=== PATIENT | female | born 1945 | race African-American/Black ===

== ENCOUNTER 2016-08-07 11:06 | Outpatient (CLI) | payer MEDICARE | END 2016-08-07 11:07 | disposition home or self-care (01) | LOC: BURLAB 11:06 | PROVIDERS: ATTEND Otolaryngology Plastic Surgery within the Head & Neck | DX: E04.2 Nontoxic multinodular goiter (principal) | CPT/HCPCS: 36415; 84432; 84443; 86800 ==

== ENCOUNTER 2016-11-24 14:13 | Outpatient (CLI) | payer MEDICARE ==
[2016-11-24 14:54] LABS: ALT (SGPT) 21 U/L (8-55); AST (SGOT) 19 U/L (5-34); Albumin 4.5 g/dL (3.4-4.8); Alkaline Phosphatase 83 U/L (40-150); Anion Gap 13 mmol/L (10-20); BUN (Urea Nitrogen) 7 mg/dL (9.8-20.1); Calc. Creatinine Clearance 0 mL/min (70-130); Calcium 10.2 mg/dL (7.8-10.44); Carbon Dioxide 30 mmol/L (23-31); Cardiac Risk 2.9 (Less than 4.5); Chloride 104 mmol/L (98-107); Cholesterol 149 mg/dL (< 200 Desired); Estimated GFR-MDRD Greater than 90; Globulin 3.9 g/dL (2.4-3.5); Glucose 105 mg/dL (80-115); HDL Cholesterol 51 mg/dL (>60 Neg Risk); LDL Cholesterol, Calculated 63 mg/dL; Potassium 3.3 mmol/L (3.5-5.1); Protein, Total 8.4 g/dL (5.8-8.1); Sodium 144 mmol/L (136-145); Triglycerides 174 mg/dL (Less than 150)
== END 2016-11-24 14:14 | disposition home or self-care (01) ==
LOC: BURLAB 14:13
PROVIDERS: ATTEND Internal Medicine Nephrology
DX: E78.2 Mixed hyperlipidemia (principal); I10 Essential (primary) hypertension
CPT/HCPCS: 36415; 80053; 80061; 84443

== ENCOUNTER 2017-11-10 10:20 | Outpatient (CLI) | payer MEDICARE ==
--- NOTE | 2017-11-11 07:29 | ULT ---
THYROID ULTRASOUND: 11/10/17 Ultrasonography of the thyroid gland was compared with a 11/27/16 study. As on the prior study, the thyroid gland is markedly enlarged. The right lobe measures 7.2 x 3.5 x 3. 3 cm and the left lobe measures 6.2 x 3.2 x 2.3 cm. There are multiple nodules scattered throughout t he lobes bilaterally. The largest is in the inferior pole of the right lobe and measures 3.9 cm in le ngth which is identical to before. There are at least six other nodules in this lobe of varying sizes . An 8 mm nodule is seen in the isthmus. There are at least four nodules in the left lobe, the larges t seen inferiorly measuring 3.2 cm in length. Overall, the appearance of the thyroid gland is not markedly different than before in terms of the va rious nodules. The findings are consistent with a multinodular goiter. Unfortunately, ultrasound is n ot able to assess if any given nodule might be neoplastic or not. IMPRESSION: Similar findings to the 2017 study. Findings consistent with a multinodular goiter with minimal diffe rences over the interval. POS: HOME
== END 2017-11-10 10:21 | disposition home or self-care (01) ==
LOC: BURULT 10:20
PROVIDERS: ATTEND Otolaryngology Plastic Surgery within the Head & Neck
DX: E04.1 Nontoxic single thyroid nodule (principal)
CPT/HCPCS: 76536

== ENCOUNTER 2021-09-04 15:35 | Inpatient (IN) | payer MEDICARE, OTHER ==
[2021-09-04 17:35] VITALS: BMI 38.2
[2021-09-04] MEDS ORDERED: Albuterol Sulfate 2.5 mg/3 ml Neb NEB PRN ×2 (17:43→17:53)
[2021-09-04] MEDS: HYDROcodone/Acetaminophen 10/325 mg Tablet PO PRN (18:37)
[2021-09-04] MEDS: Pregabalin 75 MG CAP PO SCH (20:21)
[2021-09-04] MEDS: rOPINIRole HCl 0.25 MG TAB PO SCH (20:22)
[2021-09-04] MEDS: Aspirin 81 mg Enteric Coated Tablet PO SCH (20:23)
[2021-09-04] MEDS: Atorvastatin Calcium 10 MG TAB PO SCH (20:23)
[2021-09-04] MEDS: Estradiol 1 MG TAB PO SCH (20:29)
[2021-09-05] MEDS: HYDROcodone/Acetaminophen 10/325 mg Tablet PO PRN ×4 (01:18→17:47)
[2021-09-05] MEDS: Levothyroxine Sodium 50 MCG TAB PO SCH (05:04)
[2021-09-05] MEDS ORDERED: HumaLOG 300 UNITS/3 ML VIAL SC PRN (05:53)
[2021-09-05] MEDS ORDERED: Dextrose 5% in Water 1,000 ML IV PRN (05:53)
[2021-09-05] MEDS ORDERED: Dextrose 50% Abboject 50 ML SYRINGE SLOW IVP PRN (05:53)
[2021-09-05] MEDS ORDERED: Glimepiride 2 MG TAB PO SCH (07:30)
[2021-09-05] MEDS: [UNRECOGNIZED DRUG - OTHER] PO SCH (08:21)
[2021-09-05] MEDS: FERROUS FUMARATE PO SCH (08:21)
[2021-09-05] MEDS: PNV95 PO SCH (08:21)
[2021-09-05] MEDS ORDERED: Loratadine 10 MG TAB PO SCH (09:00)
[2021-09-05] MEDS ORDERED: Empagliflozin 25 MG TAB PO SCH (09:00)
[2021-09-05] MEDS ORDERED: COLESTIPOL HCL 1 GM PO SCH (09:00)
[2021-09-05] MEDS: Pregabalin 75 MG CAP PO SCH ×3 (10:37→20:46)
[2021-09-05] MEDS: Aspirin 81 mg Enteric Coated Tablet PO SCH ×2 (10:37→20:45)
[2021-09-05] MEDS: Potassium Chloride 20 MEQ TAB PO SCH (10:39)
[2021-09-05] MEDS: Montelukast Sodium 10 mg Tablet PO SCH (10:39)
[2021-09-05] MEDS: Fish Oil 1,000 MG CAP PO SCH (10:39)
[2021-09-05] MEDS: Glimepiride 2 MG TAB PO SCH ×2 (10:40→20:47)
[2021-09-05] MEDS: Furosemide 40 MG TAB PO SCH (10:40)
[2021-09-05] MEDS: Amlodipine 5 MG TAB PO SCH ×2 (10:41→10:47)
[2021-09-05] MEDS: Docusate Sodium 100 MG/10 ML UDCUP PO SCH (10:41)
[2021-09-05] MEDS: Polyethylene Glycol 3350 17 GM Packet PO PRN ×2 (17:49→23:06)
[2021-09-05 18:16] LABS: SARS-CoV-2 PCR by NAA Not Detected (NotDetected)
[2021-09-05] MEDS: Estradiol 1 MG TAB PO SCH (20:45)
[2021-09-05] MEDS: rOPINIRole HCl 0.25 MG TAB PO SCH (20:45)
[2021-09-05] MEDS: Atorvastatin Calcium 10 MG TAB PO SCH (20:49)
[2021-09-06] MEDS: HYDROcodone/Acetaminophen 10/325 mg Tablet PO PRN ×4 (05:32→20:35)
[2021-09-06] MEDS: Levothyroxine Sodium 50 MCG TAB PO SCH (05:33)
[2021-09-06] MEDS: COLESTIPOL HCL 1 GM PO SCH (08:33)
[2021-09-06] MEDS: Montelukast Sodium 10 mg Tablet PO SCH (09:52)
[2021-09-06] MEDS: Fish Oil 1,000 MG CAP PO SCH (09:52)
[2021-09-06] MEDS: Docusate Sodium 100 MG/10 ML UDCUP PO SCH (09:52)
[2021-09-06] MEDS: Glimepiride 2 MG TAB PO SCH ×2 (09:52→20:39)
[2021-09-06] MEDS: Pregabalin 75 MG CAP PO SCH ×3 (09:52→20:36)
[2021-09-06] MEDS: Furosemide 40 MG TAB PO SCH (09:53)
[2021-09-06] MEDS: Potassium Chloride 20 MEQ TAB PO SCH (09:53)
[2021-09-06] MEDS: Aspirin 81 mg Enteric Coated Tablet PO SCH ×2 (09:53→20:38)
[2021-09-06] MEDS: [UNRECOGNIZED DRUG - OTHER] PO SCH (09:54)
[2021-09-06] MEDS: LEVOCETIRIZINE 10 MG PO SCH (09:54)
[2021-09-06] MEDS: FARXIGA 10 MG TAB PO SCH (09:54)
[2021-09-06] MEDS: FERROUS FUMARATE PO SCH (09:54)
[2021-09-06] MEDS: Amlodipine 5 MG TAB PO SCH (09:54)
[2021-09-06] MEDS: PNV95 PO SCH (09:54)
[2021-09-06] MEDS: Estradiol 1 MG TAB PO SCH (20:38)
[2021-09-06] MEDS: rOPINIRole HCl 0.25 MG TAB PO SCH (20:38)
[2021-09-06] MEDS: Atorvastatin Calcium 10 MG TAB PO SCH (20:39)
[2021-09-07] MEDS: Levothyroxine Sodium 50 MCG TAB PO SCH (05:03)
[2021-09-07] MEDS: HYDROcodone/Acetaminophen 10/325 mg Tablet PO PRN ×3 (06:59→20:50)
[2021-09-07] MEDS: COLESTIPOL HCL 1 GM PO SCH (08:02)
[2021-09-07] MEDS: Fish Oil 1,000 MG CAP PO SCH (09:58)
[2021-09-07] MEDS: Aspirin 81 mg Enteric Coated Tablet PO SCH ×2 (09:58→20:46)
[2021-09-07] MEDS: Montelukast Sodium 10 mg Tablet PO SCH (09:58)
[2021-09-07] MEDS: Pregabalin 75 MG CAP PO SCH ×3 (09:58→20:45)
[2021-09-07] MEDS: Glimepiride 2 MG TAB PO SCH ×2 (09:59→20:45)
[2021-09-07] MEDS: Amlodipine 5 MG TAB PO SCH (09:59)
[2021-09-07] MEDS: Furosemide 40 MG TAB PO SCH (09:59)
[2021-09-07] MEDS: Potassium Chloride 20 MEQ TAB PO SCH (09:59)
[2021-09-07] MEDS: Docusate Sodium 100 MG/10 ML UDCUP PO SCH (09:59)
[2021-09-07] MEDS: LEVOCETIRIZINE 10 MG PO SCH (10:00)
[2021-09-07] MEDS: FARXIGA 10 MG TAB PO SCH (10:00)
[2021-09-07] MEDS: FERROUS FUMARATE PO SCH (10:00)
[2021-09-07] MEDS: [UNRECOGNIZED DRUG - OTHER] PO SCH (10:00)
[2021-09-07] MEDS: PNV95 PO SCH (10:00)
[2021-09-07 12:21] LABS: Bilirubin Negative (Negative); Blood, Urine Negative (Negative); Clarity Clear (Clear); Glucose, Urine (Dipstick) 500 mg/dL (Negative); Ketone, Urine Negative (Negative); Leukocyte Negative (Negative); Nitrite Negative (Negative); Protein, Urine (Dipstick) Negative (Neg-Trace); Specific Gravity, Urine 1.015 (1.005-1.030); Urobilinogen 0.2 mg/dL (Less than 2); pH, Urine 7.5 (5.0-9.0)
[2021-09-07 12:29] LABS: Bacteria/HPF 1+ HPF (None Seen); RBC/HPF None Seen HPF (0-3); Squamous Epithelial 0-3 HPF (0-3); Urine Culture Reflex No No; WBC/HPF None Seen HPF (0-3)
[2021-09-07] MEDS: Ciprofloxacin 500 MG TAB PO SCH (20:46)
[2021-09-07] MEDS: Estradiol 1 MG TAB PO SCH (20:46)
[2021-09-07] MEDS: Atorvastatin Calcium 10 MG TAB PO SCH (20:46)
[2021-09-07] MEDS: rOPINIRole HCl 0.25 MG TAB PO SCH (21:58)
[2021-09-08] MEDS: HYDROcodone/Acetaminophen 10/325 mg Tablet PO PRN ×3 (01:03→17:59)
[2021-09-08] MEDS: Ciprofloxacin 500 MG TAB PO SCH ×2 (05:54→20:53)
[2021-09-08] MEDS: Levothyroxine Sodium 50 MCG TAB PO SCH (05:54)
[2021-09-08] MEDS: COLESTIPOL HCL 1 GM PO SCH (07:40)
[2021-09-08] MEDS: Montelukast Sodium 10 mg Tablet PO SCH (09:46)
[2021-09-08] MEDS: Aspirin 81 mg Enteric Coated Tablet PO SCH ×2 (09:46→20:53)
[2021-09-08] MEDS: Fish Oil 1,000 MG CAP PO SCH (09:47)
[2021-09-08] MEDS: Furosemide 40 MG TAB PO SCH (09:47)
[2021-09-08] MEDS: Glimepiride 2 MG TAB PO SCH ×2 (09:47→20:53)
[2021-09-08] MEDS: Potassium Chloride 20 MEQ TAB PO SCH (09:47)
[2021-09-08] MEDS: Docusate Sodium 100 MG/10 ML UDCUP PO SCH (09:48)
[2021-09-08] MEDS: Pregabalin 75 MG CAP PO SCH ×3 (09:48→20:52)
[2021-09-08] MEDS: [UNRECOGNIZED DRUG - OTHER] PO SCH (09:49)
[2021-09-08] MEDS: PNV95 PO SCH (09:49)
[2021-09-08] MEDS: Amlodipine 5 MG TAB PO SCH (09:49)
[2021-09-08] MEDS: FERROUS FUMARATE PO SCH (09:49)
[2021-09-08] MEDS: LEVOCETIRIZINE 10 MG PO SCH (09:51)
[2021-09-08] MEDS: FARXIGA 10 MG TAB PO SCH (09:51)
[2021-09-08] MEDS: Estradiol 1 MG TAB PO SCH (20:52)
[2021-09-08] MEDS: rOPINIRole HCl 0.25 MG TAB PO SCH (20:52)
[2021-09-08] MEDS: Atorvastatin Calcium 10 MG TAB PO SCH (21:08)
[2021-09-09] MEDS: Levothyroxine Sodium 50 MCG TAB PO SCH (05:32)
[2021-09-09] MEDS: Ciprofloxacin 500 MG TAB PO SCH ×2 (05:36→21:35)
[2021-09-09] MEDS: HYDROcodone/Acetaminophen 10/325 mg Tablet PO PRN ×3 (06:13→19:03)
[2021-09-09] MEDS: COLESTIPOL HCL 1 GM PO SCH (07:55)
[2021-09-09] MEDS: Pregabalin 75 MG CAP PO SCH ×3 (09:15→21:34)
[2021-09-09] MEDS: Montelukast Sodium 10 mg Tablet PO SCH (09:17)
[2021-09-09] MEDS: Fish Oil 1,000 MG CAP PO SCH (09:18)
[2021-09-09] MEDS: Glimepiride 2 MG TAB PO SCH ×2 (09:18→21:36)
[2021-09-09] MEDS: Potassium Chloride 20 MEQ TAB PO SCH (09:18)
[2021-09-09] MEDS: Aspirin 81 mg Enteric Coated Tablet PO SCH ×2 (09:18→21:35)
[2021-09-09] MEDS: Furosemide 40 MG TAB PO SCH (11:33)
[2021-09-09] MEDS: Docusate Sodium 100 MG/10 ML UDCUP PO SCH (11:33)
[2021-09-09] MEDS: FARXIGA 10 MG TAB PO SCH (11:35)
[2021-09-09] MEDS: Amlodipine 5 MG TAB PO SCH (11:35)
[2021-09-09] MEDS: LEVOCETIRIZINE 10 MG PO SCH (11:36)
[2021-09-09] MEDS: PNV95 PO SCH (11:36)
[2021-09-09] MEDS: [UNRECOGNIZED DRUG - OTHER] PO SCH (11:36)
[2021-09-09] MEDS: FERROUS FUMARATE PO SCH (11:36)
[2021-09-09] MEDS: Sulfameth/Trimethoprim DS 800-160mg TAB PO SCH (21:35)
[2021-09-09] MEDS: Estradiol 1 MG TAB PO SCH (21:35)
[2021-09-09] MEDS: rOPINIRole HCl 0.25 MG TAB PO SCH (21:35)
[2021-09-09] MEDS: Atorvastatin Calcium 10 MG TAB PO SCH (21:36)
[2021-09-10] MEDS: Ciprofloxacin 500 MG TAB PO SCH ×2 (05:21→21:13)
[2021-09-10] MEDS: Levothyroxine Sodium 50 MCG TAB PO SCH (05:21)
[2021-09-10] MEDS: COLESTIPOL HCL 1 GM PO SCH (07:53)
[2021-09-10] MEDS: Aspirin 81 mg Enteric Coated Tablet PO SCH ×2 (08:46→21:14)
[2021-09-10] MEDS: Pregabalin 75 MG CAP PO SCH ×2 (08:46→21:13)
[2021-09-10] MEDS: Fish Oil 1,000 MG CAP PO SCH (08:47)
[2021-09-10] MEDS: Sulfameth/Trimethoprim DS 800-160mg TAB PO SCH ×2 (08:47→21:13)
[2021-09-10] MEDS: Amlodipine 5 MG TAB PO SCH (08:47)
[2021-09-10] MEDS: Montelukast Sodium 10 mg Tablet PO SCH (08:47)
[2021-09-10] MEDS: Furosemide 40 MG TAB PO SCH (08:47)
[2021-09-10] MEDS: Potassium Chloride 20 MEQ TAB PO SCH (08:47)
[2021-09-10] MEDS: PNV95 PO SCH (08:48)
[2021-09-10] MEDS: FARXIGA 10 MG TAB PO SCH (08:48)
[2021-09-10] MEDS: Docusate Sodium 100 MG/10 ML UDCUP PO SCH (08:48)
[2021-09-10] MEDS: LEVOCETIRIZINE 10 MG PO SCH (08:48)
[2021-09-10] MEDS: [UNRECOGNIZED DRUG - OTHER] PO SCH (08:48)
[2021-09-10] MEDS: FERROUS FUMARATE PO SCH (08:48)
[2021-09-10] MEDS: Glimepiride 2 MG TAB PO SCH ×2 (08:55→21:12)
[2021-09-10] MEDS: HYDROcodone/Acetaminophen 10/325 mg Tablet PO PRN ×2 (15:51→21:21)
[2021-09-10] MEDS: rOPINIRole HCl 0.25 MG TAB PO SCH (21:13)
[2021-09-10] MEDS: Estradiol 1 MG TAB PO SCH (21:13)
[2021-09-10] MEDS: Atorvastatin Calcium 10 MG TAB PO SCH (21:15)
[2021-09-11] MEDS: HYDROcodone/Acetaminophen 10/325 mg Tablet PO PRN ×2 (05:41→20:57)
[2021-09-11] MEDS: Ciprofloxacin 500 MG TAB PO SCH ×2 (05:42→20:43)
[2021-09-11] MEDS: Levothyroxine Sodium 50 MCG TAB PO SCH (05:42)
[2021-09-11] MEDS: Pregabalin 75 MG CAP PO SCH ×2 (08:49→20:41)
[2021-09-11] MEDS: Docusate Sodium 100 MG/10 ML UDCUP PO SCH (08:49)
[2021-09-11] MEDS: Aspirin 81 mg Enteric Coated Tablet PO SCH ×2 (08:49→20:40)
[2021-09-11] MEDS: LEVOCETIRIZINE 10 MG PO SCH (08:50)
[2021-09-11] MEDS: [UNRECOGNIZED DRUG - OTHER] PO SCH (08:50)
[2021-09-11] MEDS: FERROUS FUMARATE PO SCH (08:50)
[2021-09-11] MEDS: Glimepiride 2 MG TAB PO SCH ×2 (08:50→20:42)
[2021-09-11] MEDS: Sulfameth/Trimethoprim DS 800-160mg TAB PO SCH ×2 (08:50→20:42)
[2021-09-11] MEDS: PNV95 PO SCH (08:50)
[2021-09-11] MEDS: Fish Oil 1,000 MG CAP PO SCH (08:50)
[2021-09-11] MEDS: Potassium Chloride 20 MEQ TAB PO SCH (08:50)
[2021-09-11] MEDS: Montelukast Sodium 10 mg Tablet PO SCH (08:50)
[2021-09-11] MEDS: Amlodipine 5 MG TAB PO SCH (08:50)
[2021-09-11] MEDS: COLESTIPOL HCL 1 GM PO SCH (08:51)
[2021-09-11] MEDS: FARXIGA 10 MG TAB PO SCH (08:51)
[2021-09-11] MEDS: Furosemide 40 MG TAB PO SCH (08:52)
[2021-09-11] MEDS: Estradiol 1 MG TAB PO SCH (20:40)
[2021-09-11] MEDS: rOPINIRole HCl 0.25 MG TAB PO SCH (20:42)
[2021-09-11] MEDS: Atorvastatin Calcium 10 MG TAB PO SCH (20:43)
[2021-09-12] MEDS: Ciprofloxacin 500 MG TAB PO SCH (05:37)
[2021-09-12] MEDS: Levothyroxine Sodium 50 MCG TAB PO SCH (05:37)
[2021-09-12] MEDS: COLESTIPOL HCL 1 GM PO SCH (08:41)
[2021-09-12] MEDS: Pregabalin 75 MG CAP PO SCH ×2 (08:43→20:40)
[2021-09-12] MEDS: Montelukast Sodium 10 mg Tablet PO SCH (08:47)
[2021-09-12] MEDS: Aspirin 81 mg Enteric Coated Tablet PO SCH ×2 (08:47→20:44)
[2021-09-12] MEDS: Sulfameth/Trimethoprim DS 800-160mg TAB PO SCH ×2 (08:47→20:44)
[2021-09-12] MEDS: Potassium Chloride 20 MEQ TAB PO SCH (08:47)
[2021-09-12] MEDS: Amlodipine 5 MG TAB PO SCH (08:47)
[2021-09-12] MEDS: Fish Oil 1,000 MG CAP PO SCH (08:47)
[2021-09-12] MEDS: Furosemide 40 MG TAB PO SCH (08:47)
[2021-09-12] MEDS: Docusate Sodium 100 MG/10 ML UDCUP PO SCH (08:48)
[2021-09-12] MEDS: FERROUS FUMARATE PO SCH (08:49)
[2021-09-12] MEDS: [UNRECOGNIZED DRUG - OTHER] PO SCH (08:49)
[2021-09-12] MEDS: PNV95 PO SCH (08:49)
[2021-09-12] MEDS: FARXIGA 10 MG TAB PO SCH (08:49)
[2021-09-12] MEDS: LEVOCETIRIZINE 10 MG PO SCH (08:50)
[2021-09-12] MEDS: HYDROcodone/Acetaminophen 10/325 mg Tablet PO PRN ×2 (09:04→20:41)
[2021-09-12] MEDS: Glimepiride 2 MG TAB PO SCH ×2 (09:06→20:43)
[2021-09-12 20:19] LABS: SARS-CoV-2 PCR by NAA Not Detected (NotDetected)
[2021-09-12] MEDS: Atorvastatin Calcium 10 MG TAB PO SCH (20:44)
[2021-09-12] MEDS: Estradiol 1 MG TAB PO SCH (20:44)
[2021-09-12] MEDS: rOPINIRole HCl 0.25 MG TAB PO SCH (20:44)
[2021-09-13] MEDS: Levothyroxine Sodium 50 MCG TAB PO SCH (05:27)
[2021-09-13] MEDS: COLESTIPOL HCL 1 GM PO SCH (08:09)
[2021-09-13] MEDS: Montelukast Sodium 10 mg Tablet PO SCH (09:06)
[2021-09-13] MEDS: Amlodipine 5 MG TAB PO SCH (09:06)
[2021-09-13] MEDS: Sulfameth/Trimethoprim DS 800-160mg TAB PO SCH ×2 (09:07→20:53)
[2021-09-13] MEDS: Aspirin 81 mg Enteric Coated Tablet PO SCH ×2 (09:07→20:53)
[2021-09-13] MEDS: Furosemide 40 MG TAB PO SCH (09:09)
[2021-09-13] MEDS: Glimepiride 2 MG TAB PO SCH ×2 (09:09→20:52)
[2021-09-13] MEDS: Fish Oil 1,000 MG CAP PO SCH (09:10)
[2021-09-13] MEDS: Potassium Chloride 20 MEQ TAB PO SCH (09:10)
[2021-09-13] MEDS: Docusate Sodium 100 MG/10 ML UDCUP PO SCH (09:10)
[2021-09-13] MEDS: [UNRECOGNIZED DRUG - OTHER] PO SCH (09:12)
[2021-09-13] MEDS: LEVOCETIRIZINE 10 MG PO SCH (09:12)
[2021-09-13] MEDS: PNV95 PO SCH (09:12)
[2021-09-13] MEDS: FERROUS FUMARATE PO SCH (09:12)
[2021-09-13] MEDS: FARXIGA 10 MG TAB PO SCH (09:13)
[2021-09-13] MEDS: Pregabalin 75 MG CAP PO SCH ×2 (09:17→20:50)
[2021-09-13] MEDS: rOPINIRole HCl 0.25 MG TAB PO SCH (20:53)
[2021-09-13] MEDS: Atorvastatin Calcium 10 MG TAB PO SCH (20:53)
[2021-09-13] MEDS: Estradiol 1 MG TAB PO SCH (20:53)
[2021-09-13] MEDS: HYDROcodone/Acetaminophen 10/325 mg Tablet PO PRN (20:54)
[2021-09-14] MEDS: Levothyroxine Sodium 50 MCG TAB PO SCH (05:24)
[2021-09-14] MEDS: FERROUS FUMARATE PO SCH (08:46)
[2021-09-14] MEDS: COLESTIPOL HCL 1 GM PO SCH (08:46)
[2021-09-14] MEDS: PNV95 PO SCH (08:46)
[2021-09-14] MEDS: [UNRECOGNIZED DRUG - OTHER] PO SCH (08:46)
[2021-09-14] MEDS: Pregabalin 75 MG CAP PO SCH ×2 (08:50→20:49)
[2021-09-14] MEDS: Amlodipine 5 MG TAB PO SCH (08:51)
[2021-09-14] MEDS: Glimepiride 2 MG TAB PO SCH ×2 (08:52→20:47)
[2021-09-14] MEDS: Fish Oil 1,000 MG CAP PO SCH (08:52)
[2021-09-14] MEDS: Montelukast Sodium 10 mg Tablet PO SCH (08:52)
[2021-09-14] MEDS: Furosemide 40 MG TAB PO SCH (08:52)
[2021-09-14] MEDS: Aspirin 81 mg Enteric Coated Tablet PO SCH ×2 (08:52→20:45)
[2021-09-14] MEDS: Sulfameth/Trimethoprim DS 800-160mg TAB PO SCH ×2 (08:53→20:47)
[2021-09-14] MEDS: Potassium Chloride 20 MEQ TAB PO SCH (08:54)
[2021-09-14] MEDS: LEVOCETIRIZINE 10 MG PO SCH (08:54)
[2021-09-14] MEDS: FARXIGA 10 MG TAB PO SCH (08:55)
[2021-09-14] MEDS: Docusate Sodium 100 MG/10 ML UDCUP PO SCH (08:56)
[2021-09-14] MEDS: HYDROcodone/Acetaminophen 10/325 mg Tablet PO PRN (18:36)
[2021-09-14] MEDS: Estradiol 1 MG TAB PO SCH (20:46)
[2021-09-14] MEDS: rOPINIRole HCl 0.25 MG TAB PO SCH (20:47)
[2021-09-14] MEDS: Atorvastatin Calcium 10 MG TAB PO SCH (20:48)
[2021-09-15 05:07] VITALS: BP 144/80; TEMP 97.7
[2021-09-15] MEDS: Levothyroxine Sodium 50 MCG TAB PO SCH (05:39)
[2021-09-15] MEDS: Pregabalin 75 MG CAP PO SCH (09:30)
[2021-09-15] MEDS: Glimepiride 2 MG TAB PO SCH (09:30)
[2021-09-15] MEDS: Docusate Sodium 100 MG/10 ML UDCUP PO SCH (09:30)
[2021-09-15] MEDS: Potassium Chloride 20 MEQ TAB PO SCH (09:30)
[2021-09-15] MEDS: Amlodipine 5 MG TAB PO SCH (09:31)
[2021-09-15] MEDS: Fish Oil 1,000 MG CAP PO SCH (09:31)
[2021-09-15] MEDS: Montelukast Sodium 10 mg Tablet PO SCH (09:31)
[2021-09-15] MEDS: Aspirin 81 mg Enteric Coated Tablet PO SCH (09:31)
[2021-09-15] MEDS: HYDROcodone/Acetaminophen 10/325 mg Tablet PO PRN ×2 (09:31→13:50)
[2021-09-15] MEDS: Furosemide 40 MG TAB PO SCH (09:31)
[2021-09-15] MEDS: LEVOCETIRIZINE 10 MG PO SCH (09:32)
[2021-09-15] MEDS: Sulfameth/Trimethoprim DS 800-160mg TAB PO SCH (09:32)
[2021-09-15] MEDS: FARXIGA 10 MG TAB PO SCH (09:32)
[2021-09-15] MEDS: FERROUS FUMARATE PO SCH (09:33)
[2021-09-15] MEDS: PNV95 PO SCH (09:33)
[2021-09-15] MEDS: [UNRECOGNIZED DRUG - OTHER] PO SCH (09:33)
[2021-09-15] MEDS: COLESTIPOL HCL 1 GM PO SCH (09:33)
[2021-09-17] MEDS ORDERED: Pregabalin 75 MG CAP PO SCH (09:00)
== END 2021-09-15 14:00 | disposition home or self-care (01) | DRG 560 ==
LOC: BURMED 15:35
PROVIDERS: ADMIT Family Medicine; ATTEND Family Medicine
DX: Z47.1 Aftercare following joint replacement surgery (principal); N39.0 Urinary tract infection, site not specified; L03.116 Cellulitis of left lower limb; Z20.822 Contact with and (suspected) exposure to COVID-19; R26.89 Other abnormalities of gait and mobility; I10 Essential (primary) hypertension; E78.5 Hyperlipidemia, unspecified; E03.9 Hypothyroidism, unspecified; E11.42 Type 2 diabetes mellitus with diabetic polyneuropathy; J45.909 Unspecified asthma, uncomplicated; K21.9 Gastro-esophageal reflux disease without esophagitis; M19.90 Unspecified osteoarthritis, unspecified site; Z79.82 Long term (current) use of aspirin; Z79.899 Other long term (current) drug therapy; Z91.040 Latex allergy status; Z87.891 Personal history of nicotine dependence
CPT/HCPCS: 36416; 81001; 87086; J1815; U0003; U0005